=== PATIENT | male | born 1950 ===

== ENCOUNTER 2022-05-23 08:30 | Inpatient (IN) | payer OTHER ==
[~2022-05-23] VITALS: Ht 160 cm; Wt 74.8 kg
[2022-05-23] MEDS ORDERED: LIPITOR20 MG PO (10:23)
[2022-05-23] MEDS ORDERED: GLIPIZIDE-METF1 EAC1 PO (10:24)
[2022-05-23] MEDS ORDERED: GABAPENTIN100 MG (10:24)
[2022-05-30] MEDS ORDERED: INTEGRA PLUS C1 EACH PO (13:27)
[2022-05-30] MEDS ORDERED: XARELTO10 MG PO (13:27)
[2022-05-30] MEDS ORDERED: OXYC1TAB9 PO (13:27)
[2022-05-30] MEDS ORDERED: BACTRIM DS TAB1 EACH PO (13:27)
== END 2022-05-30 21:15 | DRG 470 ==
LOC: SURG 05-28 08:30 → SURH 05-28 11:00 → O/R 05-28 11:00 → SURG 05-28 13:30 → SURH 05-28 20:55
PROVIDERS: ADMIT Orthopaedic Surgery Sports Medicine; ATTEND Orthopaedic Surgery Sports Medicine
PROC: 0SRC0J9 Replacement of Right Knee Joint with Synthetic Substitute, Cemented, Open Approach (ICD-10-PCS; principal; 2022-05-28 13:30)
DX: M17.11 Unilateral primary osteoarthritis, right knee (principal); E11.9 Type 2 diabetes mellitus without complications; Z96.659 Presence of unspecified artificial knee joint; Z20.822 Contact with and (suspected) exposure to COVID-19